=== PATIENT | female | born 1970 | race Caucasian/White ===

== ENCOUNTER 2018-12-09 17:35 | Emergency (ER) | payer SELFPAY ==
[2018-12-09] MEDS: LIDOCAINE 2% (MDV) 20 ML INJ INJ (22:46)
== END 2018-12-10 01:08 | disposition left against medical advice (07) ==
LOC: FTE 12-10 01:08
DX: T16.1XXA Foreign body in right ear, initial encounter (principal); X58.XXXA Exposure to other specified factors, initial encounter; Y92.9 Unspecified place or not applicable
CPT/HCPCS: 69200; 99283-25